=== PATIENT | male | born 1975 | race Caucasian/White ===

== ENCOUNTER 2016-07-06 02:54 | Emergency (ER) | payer SELFPAY ==
[~2016-07-06] VITALS: Ht 177.8 cm; Wt 81.6 kg
[2016-07-06 02:59] VITALS: BP 124/74; PULSE 70; RESP 16; TEMP 97.2; O2SAT 100
[2016-07-06] MEDS ORDERED: MAG HYDROX/AL HYDROX/SIMETH 30 ML, BELLADONNA ALKALOIDS/PHENOBARB 10 ML, LIDOCAINE VISC... PO ONE ×3 (03:15)
[2016-07-06] MEDS ORDERED: KETOROLAC TROMETHAMINE 60 MG/2 ML VIAL IM ONE (03:15)
[2016-07-06] MEDS ORDERED: PANTOPRAZOLE SODIUM 40 MG TAB PO ONE (03:15)
[2016-07-06] MEDS ORDERED: PROCHLORPERAZINE EDISYLATE 10 MG/2 ML VIAL IM ONE (03:15)
[2016-07-06] MEDS ORDERED: MAG-AL HYDROX/SIMETH 30 ML UDC ONE (03:30)
[2016-07-06] MEDS ORDERED: BELLADONNA ALKALOIDS/PHENOBARB 5 ML UDC ONE (03:30)
[2016-07-06] MEDS ORDERED: LIDOCAINE VISCOUS 2%, 15 ML UDC ONE (03:40)
[2016-07-06 03:50] LABS: BASOPHILS # (AUTO) 0.1 K/uL (0.0-0.2); BASOPHILS % (AUTO) 1.2 % (0.0-2.0); EOSINOPHILS # (AUTO) 0.1 K/uL (0.0-0.4); EOSINOPHILS % (AUTO) 1.2 % (0.0-4.0); HEMATOCRIT 47.8 % (36-54); HEMOGLOBIN 15.3 g/dL (14.0-18.0); LYMPHOCYTES # (AUTO) 1.6 K/uL (1.0-5.5); LYMPHOCYTES % (AUTO) 16.2 % (20.5-51.5); MEAN CORPUSCULAR HEMOGLOBIN 28 pg (27-31); MEAN CORPUSCULAR HGB CONC 32 % (32-36); MEAN CORPUSCULAR VOLUME 89 fL (79.0-98.0); MONOCYTES # (AUTO) 0.7 K/uL (0.0-1.0); NEUTROPHILS # (AUTO) 7.4 K/uL (1.8-7.7); NEUTROPHILS % (AUTO) 74.4 % (40.0-70.0); PLATELET COUNT (AUTO) 237 K/uL (130-430); RED CELL DISTRIBUTION WIDTH 12.2 % (9.0-15.0); WHITE BLOOD COUNT (AUTO) 9.9 K/uL (4.8-10.8)
[2016-07-06 04:00] LABS: ANION GAP 9 (5-15); CALCIUM 9.1 mg/dL (8.4-11.0); CHLORIDE 104 mmol/L (98-107); CREATININE 1.01 mg/dL (0.55-1.30); GLUCOSE 151 mg/dL (70-99); POTASSIUM 3.7 mmol/L (3.5-5.1); SODIUM SERUM 142 mmol/L (136-145); UREA NITROGEN, BLOOD 11 mg/dL (8-21)
[2016-07-06] MEDS ORDERED: NACL 0.9% 1,000 ML IV ONE (04:00)
[2016-07-06 04:01] LABS: GFR AFRICAN AMERICAN 105 mL/min (>90)
[2016-07-06 04:09] LABS: ALANINE AMINOTRANSFERASE 27 U/L (12-78); ALBUMIN 4.1 g/dL (3.4-4.8); ASPARTATE AMINOTRANSFERASE 14 U/L (10-37); LIPASE 405 U/L (73-393); TOTAL BILIRUBIN 2.3 mg/dL (0.0-1.0); TOTAL PROTEIN, SERUM 7.8 g/dL (6.4-8.3)
[2016-07-06 05:00] VITALS: BP 130/76; PULSE 70; RESP 18; TEMP 97.7; O2SAT 99
== END 2016-07-06 05:00 | disposition left against medical advice (07) ==
LOC: SED 02:54
DX: R50.9 Fever, unspecified (principal); R11.0 Nausea; R53.1 Weakness
CPT/HCPCS: 36415; 80053; 83690; 84484; 85025; 93005; 96360; 96372; 99285; J0780; J1885; J2001; J7030